=== PATIENT | male | born 1950 | race Caucasian/White ===

== ENCOUNTER 2017-02-11 13:36 | Emergency (ER) | payer MEDICARE, BC ==
[2017-02-11 13:40] VITALS: BP 176/80; PULSE 81; RESP 20; TEMP 98.1; O2SAT 95
[2017-02-11] MEDS ORDERED: SODIUM CHLOR 0.9% 1000 ML INJ 1,000 ML IV SCH (15:47)
--- NOTE | 2017-02-11 15:55 | PD ---
HPI Chief Complaint: Flank/Kidney Pain Time Seen by Provider: 15:38 Travel History International Travel<30 days: No Contact w/Intl Traveler<30days: No Traveled to known affect area: No History of Present Illness HPI The patient is a 67-year-old male who presents to the emergency department for right sided flank pain. The patient states he developed right sided flank pain earlier this morning. The pain has been intermittent, sharp, and at times severe. He does complain of mild diaphoresis and feels like he is going to pass out when the pain starts. He denies any dysuria, frequency, urgency, hematuria, or history nephrolithiasis. He denies any previous abdominal surgeries. The pain is intermittent, colic-like, and severe at times. The pain is located in the mid right back and radiates to the right flank, but he denies any radiation of the pain to the scrotum or testicles. He denies any history of diverticulitis. Symptoms are moderate without any alleviating or exacerbating factors. The patient is from [place], does not have a local primary physician. [facility] Past Medical History Narrative Medical hypertension Past Surgical History Narrative Surgical Pilonidal cyst surgery Social History Tobacco Use: No Allergies-Medications (Allergen,Severity, Reaction): Coded Allergies: No Known Allergies (Unverified , 02/11/17) Review of Systems Except as stated in HPI: all other systems reviewed are Neg General / Constitutional: No: Fever HENT: Positive: Lightheadedness Cardiovascular: Positive: Diaphoresis, No: Chest Pain or Discomfort Respiratory: No: Shortness of Breath Gastrointestinal: No: Nausea, Vomiting, Abdominal Pain Genitourinary: Positive: Flank Pain, No: Urgency, Frequency, Dysuria, Hematuria Neurologic: Positive: Dizziness Physical Exam Narrative GENERAL: Awake, alert, pleasant 67-year-old male who appears his stated age and is in no acute respiratory distress. He does appear in moderate discomfort. SKIN: Focused skin assessment warm/dry. HEAD: Atraumatic. Normocephalic. EYES: No injection or drainage. ENT: No nasal bleeding or discharge. Mucous membranes pink and moist. NECK: Trachea midline. No JVD. CARDIOVASCULAR: Regular rate and rhythm. No murmur appreciated. RESPIRATORY: No accessory muscle use. Clear to auscultation. Breath sounds equal bilaterally. GASTROINTESTINAL: Abdomen soft, non-tender, nondistended. No rebound tenderness. Back: Right CVA tenderness. MUSCULOSKELETAL: No obvious deformities. No clubbing. No cyanosis. No edema. NEUROLOGICAL: Awake and alert. No obvious cranial nerve deficits. Motor grossly within normal limits. Normal speech. PSYCHIATRIC: Appropriate mood and affect; insight and judgment normal. Data Data Last Documented VS Vital Signs Date Time Temp Pulse Resp B/P (MAP) Pulse Ox O2 Delivery O2 Flow Rate FiO2 02/11/17 13:40 98.1 81 20 176/80 (112) 95 Orders Orders Complete Blood Count With Diff (02/11/17 15:47) Comprehensive Metabolic Panel (02/11/17 15:47) Lipase (02/11/17 15:47) Urinalysis - C+S If Indicated (02/11/17 15:47) Ct Abd/Pel W/O Iv Contrast (02/11/17 15:47) Iv Access Insert/Monitor (02/11/17 15:47) Ecg Monitoring (02/11/17 15:47) Oximetry (02/11/17 15:47) Morphine Inj (Morphine Inj) (02/11/17 16:00) Ondansetron Inj (Zofran Inj) (02/11/17 16:00) Sodium Chlor 0.9% 1000 Ml Inj (Ns 1000 M (02/11/17 15:47) Sodium Chloride 0.9% Flush (Ns Flush) (02/11/17 16:00) Ketorolac Inj (Toradol Inj) (02/11/17 16:00) Morphine Inj (Morphine Inj) (02/11/17 17:00) Labs Laboratory Tests Test 02/11/17 15:50 02/11/17 16:05 Urine Collection Type CLEAN CATCH Urine Color YELLOW Urine Turbidity SLIGHT Urine pH 5.5 Urine Specific [place] 1.020 Urine Protein NEG mg/dL Urine Glucose (UA) NEG mg/dL Urine Ketones 15 mg/dL Urine Occult Blood TRACE Urine Nitrite NEG Urine Bilirubin NEG Urine Leukocyte Esterase NEG Urine RBC 0-3 /hpf Urine Squamous Epithelial Cells 0-5 /hpf Urine Amorphous Sediment FEW Microscopic Urinalysis Comment CULT NOT INDICATED Urine Collection Time 1550 White Blood Count 10.2 TH/MM3 Red Blood Count 5.16 MIL/MM3 Hemoglobin 15.2 GM/DL Hematocrit 45.0 % Mean Corpuscular Volume 87.3 FL Mean Corpuscular Hemoglobin 29.4 PG Mean Corpuscular Hemoglobin Concent 33.7 % Red Cell Distribution Width 13.2 % Platelet Count 228 TH/MM3 Mean Platelet Volume 8.3 FL Neutrophils (%) (Auto) 75.7 % Lymphocytes (%) (Auto) 14.2 % Monocytes (%) (Auto) 6.9 % Eosinophils (%) (Auto) 0.8 % Basophils (%) (Auto) 2.4 % Neutrophils # (Auto) 7.8 TH/MM3 Lymphocytes # (Auto) 1.4 TH/MM3 Monocytes # (Auto) 0.7 TH/MM3 Eosinophils # (Auto) 0.1 TH/MM3 Basophils # (Auto) 0.2 TH/MM3 CBC Comment AUTO DIFF Differential Total Cells Counted 100 Neutrophils % (Manual) 70 % Band Neutrophils % 5 % Lymphocytes % 18 % Monocytes % 5 % Basophils % 2 % Neutrophils # (Manual) 7.7 TH/MM3 Differential Comment FINAL DIFF MANUAL Platelet Estimate NORMAL Platelet Morphology Comment NORMAL Red Cell Morphology Comment NORMAL Blood Urea Nitrogen 19 MG/DL Creatinine 1.50 MG/DL Random Glucose 94 MG/DL Total Protein 8.3 GM/DL Albumin 4.5 GM/DL Calcium Level 9.1 MG/DL Alkaline Phosphatase 64 U/L Aspartate Amino Transf (AST/SGOT) 27 U/L Alanine Aminotransferase (ALT/SGPT) 43 U/L Total Bilirubin 1.0 MG/DL Sodium Level 141 MEQ/L Potassium Level 4.4 MEQ/L Chloride Level 107 MEQ/L Carbon Dioxide Level 24.1 MEQ/L Anion Gap 10 MEQ/L Estimat Glomerular Filtration Rate 46 ML/MIN Lipase 182 U/L [facility] Medical Decision Making Medical Screen Exam Complete: Yes Emergency Medical Condition: Yes Medical Record Reviewed: Yes Interpretation(s) Last Impressions Abdomen/Pelvis CT 02/11/17 1547 Signed Impressions: Service Date/Time: Saturday, February 11, 2017 16:25 - CONCLUSION: Hydronephrosis of the right kidney with a 2-3 mm distal right ureteral calculus , just above the right UVJ. Gabe Santoyo MD Laboratory Tests Test 02/11/17 15:50 02/11/17 16:05 Urine Collection Type CLEAN CATCH Urine Color YELLOW Urine Turbidity SLIGHT Urine pH 5.5 Urine Specific [place] 1.020 Urine Protein NEG mg/dL Urine Glucose (UA) NEG mg/dL Urine Ketones 15 mg/dL Urine Occult Blood TRACE Urine Nitrite NEG Urine Bilirubin NEG Urine Leukocyte Esterase NEG Urine RBC 0-3 /hpf Urine Squamous Epithelial Cells 0-5 /hpf Urine Amorphous Sediment FEW Microscopic Urinalysis Comment CULT NOT INDICATED Urine Collection Time 1550 White Blood Count 10.2 TH/MM3 Red Blood Count 5.16 MIL/MM3 Hemoglobin 15.2 GM/DL Hematocrit 45.0 % Mean Corpuscular Volume 87.3 FL Mean Corpuscular Hemoglobin 29.4 PG Mean Corpuscular Hemoglobin Concent 33.7 % Red Cell Distribution Width 13.2 % Platelet Count 228 TH/MM3 Mean Platelet Volume 8.3 FL Neutrophils (%) (Auto) 75.7 % Lymphocytes (%) (Auto) 14.2 % Monocytes (%) (Auto) 6.9 % Eosinophils (%) (Auto) 0.8 % Basophils (%) (Auto) 2.4 % Neutrophils # (Auto) 7.8 TH/MM3 Lymphocytes # (Auto) 1.4 TH/MM3 Monocytes # (Auto) 0.7 TH/MM3 Eosinophils # (Auto) 0.1 TH/MM3 Basophils # (Auto) 0.2 TH/MM3 CBC Comment AUTO DIFF Differential Total Cells Counted 100 Neutrophils % (Manual) 70 % Band Neutrophils % 5 % Lymphocytes % 18 % Monocytes % 5 % Basophils % 2 % Neutrophils # (Manual) 7.7 TH/MM3 Differential Comment FINAL DIFF MANUAL Platelet Estimate NORMAL Platelet Morphology Comment NORMAL Red Cell Morphology Comment NORMAL Blood Urea Nitrogen 19 MG/DL Creatinine 1.50 MG/DL Random Glucose 94 MG/DL Total Protein 8.3 GM/DL Albumin 4.5 GM/DL Calcium Level 9.1 MG/DL Alkaline Phosphatase 64 U/L Aspartate Amino Transf (AST/SGOT) 27 U/L Alanine Aminotransferase (ALT/SGPT) 43 U/L Total Bilirubin 1.0 MG/DL Sodium Level 141 MEQ/L Potassium Level 4.4 MEQ/L Chloride Level 107 MEQ/L Carbon Dioxide Level 24.1 MEQ/L Anion Gap 10 MEQ/L Estimat Glomerular Filtration Rate 46 ML/MIN Lipase 182 U/L Differential Diagnosis Differential diagnosis includes nephrolithiasis, hydronephrosis, pyelonephritis , diverticulitis, appendicitis, biliary colic, renal colic. Narrative Course IV was established, labs are drawn and sent, and the patient was placed on cardiac telemetry monitoring and continuous pulse oximetry monitoring. UA was sent to lab. Noncontrast CT of the abdomen and pelvis was ordered to evaluate for nephrolithiasis. The patient was administered Toradol, Zofran, morphine, and IV fluids. CT of the abdomen and pelvis reveals a 2-3 mm stone just above the right UVJ. The patient was reevaluated at 4:45 PM, still has moderate pain , therefore, was administered a second dose of morphine. UA reveals 15 ketones , otherwise unremarkable. Creatinine is 1.5, BUN is 19. The patient has a 2-3 mm distal right UVJ stone, will be placed on Flomax, pain medications, provided a strainer. He will be provided a copy of his CT results and lab results at discharge. He is advised to follow-up with urology as needed and return if symptoms worsen or progress. Diagnosis Primary Impression: Nephrolithiasis Patient Instructions: General Instructions Additional Instructions: Please provide the patient a copy of his CT results and lab results at discharge. Medications as directed. Please provide a patient a strainer at discharge. Follow-up with urology as needed. Activity as tolerated. Return if symptoms worsen or progress. Med/Other Pt SpecificInfo: Prescription(s) given Scripts Tamsulosin (Flomax) 0.4 Mg Cap 0.4 MG PO HS for Manage Prostate Problems for 7 Days, #7 CAP 0 Refills Prov: Sergo Garcai MD 02/11/17 Ibuprofen (Ibuprofen) 600 Mg Tab 600 MG PO Q6H Y for Pain/Inflammation, #20 TAB 0 Refills Prov: Sergo Garcia MD 02/11/17 Hydrocodone-Acetaminophen ([place]) 5 Mg-325 Mg Tab 1 TAB PO Q6H Y for PAIN, #15 TAB 0 Refills Prov: Sergo Garcia MD 02/11/17 Disposition: 01 DISCHARGE HOME Condition: Stable Sergo Garcia MD Feb 11, 2017 15:55
[2017-02-11] MEDS ORDERED: SODIUM CHLORIDE 0.9% FLUSH 10 ML FLUSH IV FLUSH PRN (16:00)
[2017-02-11] MEDS ORDERED: ONDANSETRON HCL 4 MG/2 ML VIAL IVP ONE (16:00)
[2017-02-11] MEDS ORDERED: KETOROLAC TROMETHAMINE 30 MG/ML (IVP) VIAL IVP ONE (16:00)
[2017-02-11] MEDS ORDERED: MORPHINE SULFATE 4 MG/ML INJ IV PUSH ONE ×2 (16:00→17:00)
[2017-02-11 16:28] LABS: AUTOMATED NEUTROPHIL # 7.8 TH/MM3 (1.8-7.7); BASOPHIL # 0.2 TH/MM3 (0-0.2); BASOPHIL % 2.4 % (0.0-2.0); EOSINOPHIL # 0.1 TH/MM3 (0-0.4); EOSINOPHIL % 0.8 % (0.0-4.0); HEMOGLOBIN 15.2 GM/DL (13.0-17.0); LYMPH % 14.2 % (9.0-44.0); LYMPHOCYTE # 1.4 TH/MM3 (1.0-4.8); MEAN CELL VOLUME 87.3 FL (80.0-100.0); MEAN CORPUSCULAR HEMOGLOBIN 29.4 PG (27.0-34.0); MEAN CORPUSCULAR HGB CONC 33.7 % (32.0-36.0); MEAN PLATELET VOLUME 8.3 FL (7.0-11.0); MONO % 6.9 % (0.0-8.0); MONOCYTE # 0.7 TH/MM3 (0-0.9); NEUT % 75.7 % (16.0-70.0); PLATELET COUNT 228 TH/MM3 (150-450); RED BLOOD COUNT 5.16 MIL/MM3 (4.50-5.90); RED CELL DISTRIBUTION WIDTH 13.2 % (11.6-17.2); WHITE BLOOD COUNT 10.2 TH/MM3 (4.0-11.0)
[2017-02-11 16:29] LABS: BILIRUBIN, URINE NEG (NEG); BLOOD, URINE TRACE (NEG); GLUCOSE,URINE NEG (NEG); KETONE, URINE 15 mg/dL (NEG); NITRITE,URINE NEG (NEG); PH, URINE 5.5 (5.0-8.5); URINE LEUKOCYTE ESTERASE NEG (NEG)
[2017-02-11 16:32] LABS: CHLORIDE 107 MEQ/L (98-107); SODIUM (NA) 141 MEQ/L (136-145)
[2017-02-11 16:37] LABS: ALBUMIN 4.5 GM/DL (3.4-5.0); BICARBONATE 24.1 MEQ/L (21.0-32.0); BLOOD UREA NITROGEN 19 MG/DL (7-18); CALCIUM 9.1 MG/DL (8.5-10.1); GLUCOSE,RANDOM 94 MG/DL (74-106); LIPASE 182 U/L (73-393)
[2017-02-11 16:40] LABS: ALT (GPT) 43 U/L (12-78); AST (GOT) 27 U/L (15-37); GLOMERULAR FILTRATION RATE 46 ML/MIN (>89)
[2017-02-11 16:41] LABS: TOTAL PROTEIN 8.3 GM/DL (6.4-8.2)
[2017-02-11 16:43] LABS: ALKALINE PHOSPHATASE 64 U/L (45-117)
--- NOTE | 2017-02-11 16:44 | RADRPT ---
EXAM DATE/TIME: 02/11/2017 16:25 [facility] COMPARISON: No previous studies available for comparison. INDICATIONS : Right flank pain. ORAL CONTRAST: No oral contrast ingested. RADIATION DOSE: 23.78 CTDIvol (mGy) MEDICAL HISTORY : None SURGICAL HISTORY : None. ENCOUNTER: Initial ACUITY: 1 day PAIN SCALE: 5/10 LOCATION: Right flank TECHNIQUE: Volumetric scanning of the abdomen and pelvis was performed. Using automated exposure control and ad justment of the mA and/or kV according to patient size, radiation dose was kept as low as reasonably achievable to obtain optimal diagnostic quality images. DICOM format image data is available electro nically for review and comparison. FINDINGS: LOWER LUNGS: The visualized lower lungs are clear. LIVER: Homogeneous density without lesion. There is no dilation of the biliary tree. No calcified gallston es. SPLEEN: Normal size without lesion. PANCREAS: Within normal limits. KIDNEYS: There is moderate hydronephrosis of the right kidney. There some perinephric inflammation of the righ t kidney. The ureter is normal in caliber however there is a distal 2-3 mm right ureteral stone. Ther e are numerous calcifications within each kidney. ADRENAL GLANDS: Within normal limits. VASCULAR: There is no aortic aneurysm. BOWEL/MESENTERY: The stomach, small bowel, and colon demonstrate no acute abnormality. There is no free intraperitone al air or fluid. ABDOMINAL WALL: Within normal limits. RETROPERITONEUM: There is no lymphadenopathy. BLADDER: No wall thickening or mass. REPRODUCTIVE: Within normal limits. INGUINAL: There is no lymphadenopathy or hernia. MUSCULOSKELETAL: Within normal limits for patient age. CONCLUSION: Hydronephrosis of the right kidney with a 2-3 mm distal right ureteral calculus, just above the right UVJ. Gabe Santoyo MD on February 11, 2017 at 16:39 Board Certified Radiologist. This report was verified electronically.
[2017-02-11 16:52] LABS: URINE COLOR YELLOW (YELLW/STRAW)
[2017-02-11 16:53] LABS: AMORPHOUS SEDIMENT, URINE FEW; RBC, URINE 0-3 /hpf (0-3); SQUAMOUS EPITHELIAL CELL URINE 0-5 /hpf (0-5)
[2017-02-11 17:01] LABS: BANDS 5 % (0-6); BASOPHILS 2 % (0-2); LYMPHOCYTES 18 % (9-44); MONOCYTES 5 % (0-8); NEUTROPHIL # MANUAL DIFF 7.7 TH/MM3 (1.8-7.7); POLYS (SEG NEUTROPHILS) 70 % (16-70)
[2017-02-11] MEDS ORDERED: IBUP-232 PO (17:11)
[2017-02-11] MEDS ORDERED: TAMS5CAP PO (17:11)
[2017-02-11] MEDS ORDERED: NORC5TAB PO (17:11)
[2017-02-11 17:30] VITALS: BP 158/82
== END 2017-02-11 17:36 | disposition home or self-care (01) ==
LOC: PHED 13:36
DX: N13.2 Hydronephrosis with renal and ureteral calculous obstruction (principal)
CPT/HCPCS: 74176; 80053; 81001; 83690; 85007; 85027; 96361; 96374; 96375; 96376; 99285; J1885; J2270; J2405; J7030

== ENCOUNTER 2017-02-20 14:26 | Emergency (ER) | payer MEDICARE, BC ==
[~2017-02-20] VITALS: Ht 175.3 cm; Wt 97.9 kg
[~2017-02-20 14:26] MED LIST: IBUP-232 PO; NORC5TAB PO; TAMS5CAP PO
[2017-02-20 14:34] VITALS: BP 142/75; PULSE 62; RESP 16; TEMP 99.3; O2SAT 96
[2017-02-20] MEDS ORDERED: SIMV20TA PO (14:42)
[2017-02-20] MEDS ORDERED: METO50TA PO (14:42)
--- NOTE | 2017-02-20 15:21 | PD ---
HPI Chief Complaint: Musculoskeletal Complaint Time Seen by Provider: 15:12 Travel History International Travel<30 days: No Contact w/Intl Traveler<30days: No Traveled to known affect area: No History of Present Illness HPI 67-year-old male presents to emergency department complaining of right elbow and right wrist pain since Sunday. States he has been playing a significant amount of pickle ball and develops this pain frequently. Patient comes in today because she would like something for the pain and to reduce swelling. Patient denies trauma. States that he has had his right elbow drained before but does not believe he needs to be drained now. Patient has fever or chills. States he does have history of gout and just came [place] cruise ship [place] 21 days. States that he did drink more than normal which may contributed to his current symptoms. He has been using Aleve without significant relief. Denies chronic medical issues or chronic medication use. Denies fever or chills. Patient is monogamous and is . PFSH Past Medical History Cardiovascular Problems: Yes (htn on meds) High Cholesterol: Yes Diminished Hearing: No Hypertension: Yes Kidney Stones: Yes Immunizations Current: Yes Tetanus Vaccination: Unknown Influenza Vaccination: No Past Surgical History Surgical History: No Previous Surgery Tonsillectomy: Yes Social History Alcohol Use: Yes (BEER/WINE DAILY) Tobacco Use: No Substance Use: No Allergies-Medications (Allergen,Severity, Reaction): Coded Allergies: No Known Allergies (Unverified , 02/20/17) Reported Meds & Prescriptions Reported Meds & Active Scripts Active Prednisone 20 Mg Tab 20 Mg PO DAILY 7 Days Avoid use with other antiinflammatories. Indomethacin 25 Mg Cap 25 Mg PO TID 7 Days Take with food, milk, or antacids to decrease stomach adverse effects. Reported Simvastatin 20 Mg Tab 20 Mg PO DAILY Metoprolol Tartrate 50 Mg Tab 50 Mg PO DAILY Review of Systems Except as stated in HPI: all other systems reviewed are Neg Physical Exam Narrative GENERAL: Well-developed well-nourished in NAD SKIN: Focused skin assessment warm/dry. HEAD: Atraumatic. Normocephalic. EYES: Pupils equal and round. No scleral icterus. No injection or drainage. ENT: No nasal bleeding or discharge. Mucous membranes pink and moist. NECK: Trachea midline. No JVD. CARDIOVASCULAR: Regular rate and rhythm. No murmur appreciated. RESPIRATORY: No accessory muscle use. Clear to auscultation. Breath sounds equal bilaterally. GASTROINTESTINAL: Abdomen soft, non-tender, nondistended. Hepatic and splenic margins not palpable. MUSCULOSKELETAL: No obvious deformities. No clubbing. No cyanosis. No edema. Right elbow- olecranon process edematous and fluctuance without erythema or lymphangitic Spread. No crepitus or deformities Right wrist and hand- [place] edematous without erythema. No lymphangitic Spread. Mildly tender to palpation of the wrist. No crepitus or deformities. Neurovascularly intact upper right extremity NEUROLOGICAL: Awake and alert. No obvious cranial nerve deficits. Motor grossly within normal limits. Normal speech. PSYCHIATRIC: Appropriate mood and affect; insight and judgment normal. Data Data Last Documented VS Vital Signs Date Time Temp Pulse Resp B/P (MAP) Pulse Ox O2 Delivery O2 Flow Rate FiO2 02/20/17 14:34 99.3 62 16 142/75 (97) 96 Orders Orders Prednisone (Deltasone) (02/20/17 15:30) Ed Discharge Order (02/20/17 15:25) MDM Medical Decision Making Medical Screen Exam Complete: Yes Emergency Medical Condition: Yes Differential Diagnosis Right elbow, right wrist and hand Narrative Course 67-year-old male presents to emergency department complaining of right elbow and right wrist pain since Sunday. States he has been playing a significant amount of pickle ball and develops this pain frequently. Patient comes in today because she would like something for the pain and to reduce swelling. Patient denies trauma. States that he has had his right elbow drained before but does not believe he needs to be drained now. Patient has fever or chills. States he does have history of gout and just came off a cruise ship for 21 days. States that he did drink more than normal which may contributed to his current symptoms. He has been using Aleve without significant relief. Denies chronic medical issues or chronic medication use. Denies fever or chills. Patient is monogamous and is . Vital signs stable Physical exam findings consistent with gouty arthritis versus the olecranon bursitis Based off the history, we'll treat for acute gouty arthritis as patient has had more alcohol intake than normal. In addition he states that this is exactly like his previous gouty attacks. He states that he has had multiple areas of gouty attacks to include his ankle and toes. He has had gouty attacks in the areas he complains of today as well Prednisone tenderness in the emergency department. Prednisone and indomethacin for outpatient use. Patient to use separately and avoid use together. Advised follow-up with primary care physician for further treatment and evaluation. Patient to return for worsening or persistent symptoms. Diagnosis Primary Impression: Acute gouty arthritis Referrals: Primary Care Physician Additional Instructions: Use ice or heat for symptom relief. Elevate the joint above the heart to reduce swelling. You may use compression with Chema wrap or similar to reduce swelling. If symptoms persist or worsen, return to the emergency department. Follow up with your primary care physician within 2 days. Consider medication to reduce the amount of uric acid in your blood after this episode. Follow up with a PCP for this medication. Scripts Prednisone (Prednisone) 20 Mg Tab 20 MG PO DAILY for Pain Management for 7 Days, #7 TAB 0 Refills Avoid use with other antiinflammatories. Prov: Kori Peña 02/20/17 Indomethacin (Indomethacin) 25 Mg Cap 25 MG PO TID for Pain Management for 7 Days, CAP 0 Refills Take with food, milk, or antacids to decrease stomach adverse effects. Prov: Kori Peña 02/20/17 Disposition: 01 DISCHARGE HOME Condition: Stable Kori Peña Feb 20, 2017 15:21
[2017-02-20] MEDS ORDERED: INDO25CA PO (15:23)
[2017-02-20] MEDS ORDERED: PRED20 PO (15:24)
[2017-02-20] MEDS ORDERED: predniSONE 50 MG TAB PO ONE (15:30)
== END 2017-02-20 15:30 | disposition home or self-care (01) ==
LOC: PHEFT 14:26
DX: M10.9 Gout, unspecified (principal); I10 Essential (primary) hypertension; E78.00 Pure hypercholesterolemia, unspecified; Z87.442 Personal history of urinary calculi; Z79.899 Other long term (current) drug therapy
CPT/HCPCS: 99284; J7512